=== PATIENT | male | born 1950 | race Caucasian/White ===

== ENCOUNTER 2019-12-12 13:04 | Emergency (ER) | payer OTHER ==
[~2019-12-12] VITALS: Ht 182.9 cm; Wt 97.1 kg
--- NOTE | 2019-12-12 13:45 | NUR ---
SUSAN FROM [facility] TO ER BED 13. AAOX3. NOT IN RESP DISTRESS. BROUGHT ON FOR BEING AGGRESSIVE TO STAFF AND HAVE BEEN NOTED WANDERING. UPON ASSESSMENT, PT WAS ABLE TO SAY THAT HE IS HERE BECAUSE HE WAS AGITATED. PT AT TIME OF ASSESSMENT WAS CALM AND COOPERATIVE. DENIES ANY THOUGHTS OF HARMING SELF NOR OTHERS. IS AT THE BEDSIDE FOR EVAL.
[2019-12-12 13:54] LABS: BASOPHILS % (AUTO) 0.6 % (0.0-2.0); EOSINOPHILS % (AUTO) 1.7 % (0.0-6.0); HEMATOCRIT 41 % (39-51); HEMOGLOBIN 13.4 g/dL (13.5-17.5); LYMPHOCYTES # (AUTO) 2.1 /CMM (0.8-4.8); LYMPHOCYTES % (AUTO) 25.6 % (20.0-44.0); MEAN CORPUSCULAR HGB CONC 33 g/dl (31.0-36.0); MEAN CORPUSCULAR VOLUME 97 fL (80-96); MONOCYTES # (AUTO) 0.7 /CMM (0.1-1.30); MONOCYTES % (AUTO) 8.4 % (2.0-12.0); NEUTROPHILS # (AUTO) 5.2 /CMM (1.8-8.9); NEUTROPHILS % (AUTO) 63.7 % (43.0-81.0); PLATELET COUNT (AUTO) 206 /CMM (150-450); RED BLOOD CELL COUNT(AUTO) 4.21 MIL/uL (4.5-6.0); WHITE BLOOD COUNT (AUTO) 8.1 K/uL (4.3-11.0)
[2019-12-12 15:04] LABS: CALCIUM, SERUM 8.8 mg/dL (8.5-10.1); CARBON DIOXIDE 24 mmol/L (21-32); CHLORIDE 107 mmol/L (98-107); CREATININE 1.3 mg/dL (0.6-1.3); GLUCOSE 79 mg/dL (74-106); POTASSIUM 3.4 mmol/L (3.5-5.1); SODIUM SERUM 142 mmol/L (136-145); UREA NITROGEN, BLOOD 19 mg/dL (7-18)
[2019-12-12 15:17] LABS: ALANINE AMINOTRANSFERASE 16 U/L (12-78); ALBUMIN 3.6 g/dL (3.4-5.0); ALCOHOL, BLOOD < 3 mg/dL (0-0); ALKALINE PHOSPHATASE 75 U/L (46-116); ASPARTATE AMINOTRANSFERASE 20 U/L (15-37); BILIRUBIN,DIRECT 0.1 mg/dL (0.0-0.2); BILIRUBIN,TOTAL 0.5 mg/dL (0.2-1.0); TOTAL PROTEIN, SERUM 7.4 g/dL (6.4-8.2)
[2019-12-12 15:18] LABS: SALICYLATE 0.7 mg/dL (2.8-20.0)
--- NOTE | 2019-12-12 15:20 | NUR ---
Attempted straight catheter to obtain urine sample, resistance met. Made aware
--- NOTE | 2019-12-12 15:42 | NUR ---
STILL UNABLE TO PROVIDE URINE AT THIS TIME.
--- NOTE | 2019-12-12 16:15 | NUR ---
PER DR. ALANIZ PATIENT IS MEDICALLY CLEARED FOR CRISIS EVALUATION
--- NOTE | 2019-12-12 16:24 | NUR ---
CALLED [employer] SUPERVISOR FOR EVALUATION
[2019-12-12] MEDS ORDERED: POTASSIUM CHLORIDE 20 MEQ TAB.PRT.SR PO ONE ×2 (16:30→16:47)
--- NOTE | 2019-12-12 17:20 | NUR ---
URINE SAMPLE SENT TO LAB.
[2019-12-12 17:26] LABS: APPEARANCE,URINE Cloudy (CLEAR); BILIRUBIN,URINE SMALL (NEGATIVE); BLOOD, URINE Large Ery/uL (NEGATIVE); COLOR,URINE Yellow (YELLOW); KETONES,URINE Trace (NEGATIVE); LEUKOCYTE ESTERASE ,URINE Negative (NEGATIVE); NITRITE, URINE Negative (NEGATIVE); PH,URINE 5.5 (5.0-8.0); PROTEIN,URINE 100 mg/dl (NEGATIVE); UGLUCOSE Negative (NEGATIVE)
[2019-12-12 17:52] LABS: BACTERIA,URINE Few /HPF (None Seen); RBC,URINE 21-50 /HPF (0-2); SQUAMOUS EPITHELIAL CELL,UR Few /HPF (None Seen); WBC,URINE 0-2 /HPF (0-3)
--- NOTE | 2019-12-12 19:13 | NUR ---
EVELIN RO STATED THEY ARE WILLING TO TAKE HER BACK.
--- NOTE | 2019-12-12 19:16 | NUR ---
ASSUMED CARE. PT SITTING UP IN BED QUIETLY, NO ACUTE DISTRESS NOTED, RESP EVEN AND UNLABORED. CALL LIGHT WIHTIN REACH. NO PAIN OR DISCOMFORT NOTED AT THIS TIME.
--- NOTE | 2019-12-12 19:51 | NUR ---
PT IS PROVIDED WITH FOOD
--- NOTE | 2019-12-12 19:56 | NUR ---
TRANSPORT CALLED ([facility]) ETA [id number]
--- NOTE | 2019-12-12 20:32 | NUR ---
PINKY MIKE [employer] SHIFT SUPERVISOR AT BEDSIDE FOR EVAL.
--- NOTE | 2019-12-12 21:17 | NUR ---
TRANSPORT AT BEDSIDE REPORT GIVEN TO EMT.
[2019-12-12 21:19] VITALS: BP 127/63
== END 2019-12-12 21:20 | disposition home or self-care (01) ==
LOC: ER 13:10 → EDBD 13:10 → ER 21:20
DX: F23 Brief psychotic disorder (principal); E87.6 Hypokalemia; R94.6 Abnormal results of thyroid function studies; D64.9 Anemia, unspecified; E03.9 Hypothyroidism, unspecified; F32.9 Major depressive disorder, single episode, unspecified
CPT/HCPCS: 36415; 80048; 80076; 80305; 80307; 80329; 81001; 84439; 84443; 85025; 99283; G0480; 81000-TC